=== PATIENT | female | born 1950 | race Caucasian/White ===

== ENCOUNTER 2019-01-08 16:01 | Emergency (ER) | payer MEDICARE, BC ==
[~2019-01-08] VITALS: Ht 175.3 cm; Wt 74.5 kg
[~2019-01-08 16:01] MED LIST: ANTIVERT 25MG25 MG PO; ASPIRIN 32325 MG/TAB PO; ASPIRIN 81M81 MG/TA2 PO; CALCIUM CARBONATE; CARAFATE 1GM1 G PO; FLEXERIL5 MG PO; LEVOXYL0.075 MG PO; LIDODERM PATCH TP; LORTAB PO; LUMIGAN 2.5 ML2.5 M1 OU; LUMIGAN 5 ML5 M1 OP; LUMIGAN 5 ML5 ML OP; LUMIGAN EYE GTTS OP; MOTRIN 200200 MG/TAB PO; NORCO 325 MG-101 TAB PO; NORCO 325 MG-51 TAB; ORIGANUM OIL 1 M1 ML PO; OXYCONTIN10 MG PO; PROTONIX 40MG T40 MG PO; PROTONIX20 MG PO; PROTONIX40 MG PO; TORADOL 10MG TA10 MG PO; TUMS500 MG PO; VICODIN PO; ZOHYDRO ER10 MG PO
[2019-01-08 16:07] VITALS: TEMP 98.7
[2019-01-08 17:25] LABS: BASO % 0.5 % (0.0-2.0); EOS # 0.1 (0.0-0.7); EOS % 1.9 % (0-4.0); GRAN # 4.4 (1.4-6.5); GRAN % 68.2 % (42.2-75.2); HEMATOCRIT 45.3 % (37.0-47.0); HEMOGLOBIN 15.1 g/dl (12.5-16.0); LYMPH # 1.3 (1.2-3.4); LYMPH % 20.8 % (20.0-51.0); MEAN CELL VOLUME 83 fl (80.0-100.0); MEAN CORPUSCULAR HEMOGLOBIN 28 pg (27.0-31.0); MEAN CORPUSCULAR HGB CONC 33 g/dl (33.0-37.0); MEAN PLATELET VOLUME 12.4 fl (7.4-10.4); MONO # 0.5 (0.1-0.6); MONO % 8.1 % (1.7-9.3); PLATELET COUNT 166 K/mm3 (130-400); RED BLOOD COUNT 5.45 M/mm3 (4.10-5.30)
[2019-01-08 17:34] LABS: ALANINE AMINOTRANSFERASE 11 U/L (9-52); ALBUMIN 4.2 gm/dL (3.5-5.0); ALKALINE PHOSPHATASE 65 U/L (50-136); ANION GAP 9 mmol/L (7-16); AST,SGOT 16 U/L (15-37); BILIRUBIN,TOTAL 0.5 mg/dL (0.0-1.0); BLOOD UREA NITROGEN 18 mg/dL (7-17); CALCIUM 9.6 mg/dL (8.4-10.2); CARBON DIOXIDE 24 mmol/L (22-30); CHLORIDE 105 mmol/L (98-107); CREATININE, serum 0.72 (0.52-1.25); GLUCOSE 102 mg/dL (74-106); POTASSIUM 4.3 mmol/L (3.4-5.0); SODIUM 138 mmol/L (137-145); TOTAL PROTEIN 7.1 gm/dL (6.4-8.2)
[2019-01-08 18:05] LABS: C-REACTIVE PROTEIN < 0.5 mg/dL (0.0-0.9)
[2019-01-08 18:48] VITALS: BP 128/80; PULSE 68
== END 2019-01-08 18:49 | disposition home or self-care (01) ==
LOC: COL.ER 16:01
PROVIDERS: Nurse Practitioner
DX: M25.522 Pain in left elbow (principal); F17.210 Nicotine dependence, cigarettes, uncomplicated; Z90.710 Acquired absence of both cervix and uterus; Z90.49 Acquired absence of other specified parts of digestive tract; Z90.89 Acquired absence of other organs; Z79.82 Long term (current) use of aspirin

== ENCOUNTER → 2021-02-18 | Outpatient (CLI) | payer MEDICARE, OTHER ==
[~2021-02-18] MED LIST changes: +PEPCID40 MG PO; +SYNTHROID0.075 MG/T PO; +VITAMIN D32000 I1 PO
== END ==
LOC: COL.RAD 13:57
DX: Z12.2 Encounter for screening for malignant neoplasm of respiratory organs (principal); R91.8 Other nonspecific abnormal finding of lung field; F17.210 Nicotine dependence, cigarettes, uncomplicated

== ENCOUNTER → 2021-03-22 | Outpatient (CLI) | payer MEDICARE | LOC: COL.RAD 13:19 | DX: R91.1 Solitary pulmonary nodule (principal); Z96.89 Presence of other specified functional implants ==

== ENCOUNTER → 2021-12-20 | Outpatient (CLI) | payer MEDICARE, BC | LOC: MC.RAD 14:00 | DX: N63.41 Unspecified lump in right breast, subareolar (principal) ==